=== PATIENT | male | born 1995 | race Caucasian/White ===

== ENCOUNTER 2020-12-31 13:01 | Emergency (ER) | payer OTHER ==
[~2020-12-31 13:01] MED LIST: NORCO 7.5-3251 EACH PO
[2020-12-31 14:30] LABS: BUN/CREATININE RATIO 12 (0-10)
[2020-12-31 15:30] LABS: HEMOGLOBIN 15.3 gm/dl (14.0-17.5); RED BLOOD COUNT 4.98 M/UL (4.20-5.50); WHITE BLOOD COUNT 6.5 K/UL (4.5-11.0)
[2020-12-31] MEDS ORDERED: AUGMENTIN 875-1 EACH PO (15:59)
[2020-12-31] MEDS ORDERED: IBUPROFEN600 MG PO (15:59)
[2020-12-31] MEDS ORDERED: AZITHROMYCIN250 MG PO (16:09)
[2020-12-31] MEDS ORDERED: CLINDAMYCIN HC300 MG PO (16:09)
== END 2020-12-31 16:25 | disposition home or self-care (01) ==
LOC: ER1 13:01
PROVIDERS: Emergency Medicine
DX: J18.9 Pneumonia, unspecified organism (principal); K08.89 Other specified disorders of teeth and supporting structures; F17.200 Nicotine dependence, unspecified, uncomplicated
CPT/HCPCS: 71045; 80053; 82550; 82553; 83874; 84484; 85025; 85379; 99285